=== PATIENT | female | born 1945 | race Asian ===

== ENCOUNTER 2018-05-06 16:22 | Emergency (ER) | payer MEDICARE ==
[~2018-05-06] VITALS: Ht 157.5 cm; Wt 56.2 kg
[2018-05-06 17:02] LABS: BASOPHILS # (AUTO) 0.03 x10^3/uL (0-0.1); BASOPHILS % (AUTO) 0 % (0-1); EOSINOPHILS # (AUTO) 0.08 x10^3/uL (0-0.4); EOSINOPHILS % (AUTO) 1 % (1-7); LYMPHOCYTES # (AUTO) 1.95 x10^3/uL (1-3.4); LYMPHOCYTES % (AUTO) 25 % (22-44); MD NO; MEAN CORPUSCULAR HEMOGLOBIN 31.1 pg (27.0-34.8); MEAN CORPUSCULAR HGB CONC 33.4 g/dL (32.4-35.8); MEAN CORPUSCULAR VOLUME 93.3 fL (80-100); MEAN PLATELET VOLUME 9.3 fL (7.4-10.4); MONOCYTES # (AUTO) 0.41 x10^3/uL (0.2-0.8); MONOCYTES % (AUTO) 5 % (2-9); NEUTROPHILS # (AUTO) 5.51 x10^3/uL (1.8-6.8); NEUTROPHILS % (AUTO) 69 % (42-75); PLATELET COUNT 268 x10^3/uL (130-400); RED BLOOD COUNT 5.05 x10^6/uL (3.82-5.3); RED CELL DISTRIBUTION WIDTH 13.6 % (9.6-15.2)
[2018-05-06 17:10] LABS: ALBUMIN 4.1 g/dL (3.4-5.0); ANION GAP 7 mmol/L (5-15); CALCIUM 9.8 mg/dL (8.5-10.1); CHLORIDE 104 mmol/L (98-107); CREATININE 0.87 mg/dL (0.55-1.02)
[2018-05-06 17:57] LABS: MICROSCOPIC NOT IND
[2018-05-06] MEDS ORDERED: LOVA40TA2 PO (18:08)
[2018-05-06] MEDS ORDERED: FLUTICASONE (18:09)
[2018-05-06] MEDS ORDERED: ATEN25TA PO (18:10)
[2018-05-06 18:17] LABS: CULTURE INDICATED? NO
[2018-05-06 19:02] VITALS: BP 152/66
== END 2018-05-06 19:10 | disposition home or self-care (01) ==
LOC: ED 17:27
DX: I10 Essential (primary) hypertension (principal); R42 Dizziness and giddiness; H53.8 Other visual disturbances
CPT/HCPCS: 36415; 71045; 80048; 81003; 82040; 85025; 93005; 99285